=== PATIENT | female | born 1980 | race Caucasian/White ===

== ENCOUNTER 2022-08-27 14:13 | Outpatient (CLI) | payer MEDICARE, SELFPAY ==
--- NOTE | 2022-08-27 | XR_ITS ---
Final Report Patient: DESTINI ERIC Facility:?[facility] Patient ID:?[id number] Site Patient ID:?[id number]. Site :?[id number] Study:?XRay Chest PICC PLACEMENT-08/27/2022 3:49:27 PM Ordering Physician:Mireya Marie Final Report: Indication: PICC line placement Comparison: None available. Technique: Single AP view chest Findings: There is a right-sided PICC line with the tip in satisfactory position at the cavoatrial junction. There is no focal consolidation, effusion, or pneumothorax. The cardiac silhouette is mildly prominent. The bony thorax is grossly intact. Impression: Right-sided PICC line with the tip in satisfactory position at the cavoatrial junction. Dictated by Felton Bowles MD @ 08/27/2022 4:44:52 PM (Electronic Signature)
--- NOTE | 2022-08-27 14:30 | CRLHL7_ITS ---
For Patients: As a result of the Cures Act, medical imaging exams and procedure reports are released immediately into your electronic medical record. You may view this report before your referring provider. If you have questions, please contact your health care provider. Indication: chemotherapy administration Technique: Sonographic images of the right basilic vein submitted. IMPRESSION: Fluoroscopic guidance for right arm PICC line placement. Dictated by Paul Barry MD @ 08/27/2022 3:11:14 PM (Electronically Signed)
--- NOTE | 2022-08-27 15:30 | CRLHL7_ITS ---
For Patients: As a result of the Century Cures Act, medical imaging exams and procedure reports are released immediately into your electronic medical record. You may view this report before your referring provider. If you have questions, please contact your health care provider. INDICATION: Chemotherapy administration. PICC line placement. History of endocervical adenocarcinoma. TECHNIQUE: Chest 1 view. COMPARISON: None. FINDINGS: No focal consolidation, pleural effusion, or pneumothorax. Normal heart size and pulmonary vascularity. The tip of the right PICC is suboptimally visualized but likely within the right atrium approximately 1-2 cm below the cavoatrial junction. The bones are unremarkable. IMPRESSION: 1. No acute cardiopulmonary findings. 2. The tip of the right PICC is suboptimally visualized but likely within the right atrium. This could be retracted approximately 1-2 cm. Dictated by Melinda Burrell MD @ 08/27/2022 3:30:43 PM (Electronically Signed)
== END 2022-08-27 14:14 | disposition home or self-care (01) ==
LOC: US 14:13
PROVIDERS: Visit Provider Clinical Nurse Specialist
DX: C53.0 Malignant neoplasm of endocervix (principal)
CPT/HCPCS: 36573

== ENCOUNTER 2022-10-11 11:00 | Outpatient (RCR) | payer MEDICARE, SELFPAY ==
--- NOTE | 2022-07-21 14:50 | URNOTE ---
REceived request for prior auth for Ashley ([id number]). Per [employer] website. Prior authorization is not required.
--- NOTE | 2022-07-22 14:04 | URNOTE ---
Request received for authorization for Cisplatin (J9060), Emend ([id number]), Aloxi ([id number]). Prior authorization for Cisplatin J9060 is approved Authorization Ref# [id number] start 07-21-2022 to 07-21-2023, Emend ([id number]) and Aloxi ([id number]) PA is not required as MA members do not require PA. Call to [facility] Ref#[id number]. 07/22/2022 at 1347 AUTO BODY MAN.
--- NOTE | 2022-07-30 15:31 | ONC.PROVNOTE ---
[facility] Provider Note Clinic Note Narrative: Treatment plan: weekly cisplatin with radiation therapy Ms. Navarrete was seen by Dr. Nicky Blanco in [place] on 07/19/22 and desires to receive her treatment in [place]. She has cervical cancer and is to receive concurrent chemoradiation therapy with weekly cisplatin dosed at 40mg/M2. Orders were placed by pr on behalf of Dr. Nicky Blanco. Magnesium and potassium added to hydration fluids and Ms. Navarrete will have CBC BMP and Mg lab work prior to each dose. Per Dr. Blanco, Ms. Navarrete has her homegoing antiemetic prescriptions. Please see scanned office note by Dr. Blanco from 07/19/22 for more information.
--- NOTE | 2022-08-02 16:22 | URNOTE ---
PA for Cisplatin has been cancelled as medication is unable to be obtained. [facility] Rep. Anna Valdez Ref#[id number] Request received for Carboplatin [id number]. Prior Authorization from [facility] via [employer] Rep. Raj Scanlon approved Ref#[id number] from 08/02/22 to 08/02/23.
--- NOTE | 2022-08-03 12:50 | ONC.NURNOTE ---
Addendum entered by Laurel Haywood RN 08/10/22 11:19: teaching completed today patient has information from [facility] as well questions addressed consent and REBECCA reviewed and signed reviewed handouts on diarrhea management Original Note: New start chemotherapy teaching from 08/02/22 -teaching started but was not completed due to appt at XRT and late start with this appt -reviewed possible side effects of chemotherapy, after hours management, self care at home including importance of hydration, ER with fever, treatment schedule, appts made, started to review contents of the teaching binder -still needed, REBECCA and chemotherapy consents, PSDS, and review of chemo specific side effects -at the time of this teaching if was unknown how the treatment plan may be modified due to new info that there is a severe limitation of availability of cisplatin -possible other treatment options were discussed with Jennifer, with more info coming later today -labs were not done- due to time- this global technical writer thought that XRT was at 1500 but it was at 1400 Jennifer was aware she could stop by after XRT appt to get labs done
--- NOTE | 2022-08-03 12:58 | ONC.NURNOTE ---
MNT consulted reports a history of diarrhea and constipation with bloating high risk for increase in diarrhea due to location of XRT agreeable to MNT referral-
--- NOTE | 2022-08-04 16:14 | ONC.NURNOTE ---
Addendum entered by Laurel Haywood RN 08/05/22 08:58: follow up of yesterday's conversation did not go to ER due to pain resolution yesterday pm discussed with XRT staff yesterday and Dr Shipman and it was decided to monitor feels great today- no pain Original Note: reports racing heart from prednisone dose call into [facility] about next management, BP, P reported as normal SOB w/Exertion small stab of pain from anterior rib cage to posterior shoulder blade, was instructed to go to ER by [facility] with worsening pain reports a major anxiety attack yesterday during XRT Jennifer has made arrangements for more support next week some nausea today, unable to eat until mid afternoon taking antiemetics
--- NOTE | 2022-08-05 11:36 | URNOTE ---
Request received for Cisplatin (J9060) and Carboplatin (J9045).?Pt carries [facility] for insurance. Rep. Mary ([phone][facility] Cisplatin (J9060) and Carboplatin (J9045) from 08/05/22 to 08/06/23, [facility] aware this is due to medication availability,?Ref#[id number].
[2022-08-09 11:05] LABS: Basophils Absolute Auto 0.01 K/uL (0.00-0.30); Basophils Percent Auto 0.2 % (0.0-3.0); Eosinophils Absolute Auto 0.15 K/uL (0.00-0.50); Eosinophils Percent Auto 2.9 % (0.0-7.0); Hematocrit 39.2 % (33.0-51.0); Immature Granulocytes Abs Auto 0.04 K/uL (0.00-0.30); Immature Granulocytes Pct Auto 0.8 %; Lymphocytes Absolute Auto 1.33 K/uL (0.90-2.90); Lymphocytes Percent Auto 26.1 % (20-44); Mean Corpuscular HGB Conc 36 gm/dL (32-36); Mean Corpuscular Hemoglobin 32 pg (26-34); Mean Corpuscular Volume 89 fL (80-100); Monocytes Percent Auto 6.1 % (0.0-11.0); Neutrophils Absolute Auto 3.26 K/uL (1.7-7.0); Neutrophils Percent Auto 63.9 % (42.0-72.0); Platelet Count* 191 K/uL (140-440); Red Blood Count 4.42 m/uL (4.00-5.20)
[2022-08-09 11:14] LABS: Chloride* 105 mmol/L (96-114); Potassium* 4.5 mmol/L (3.6-5.1); Slide Review Reflex No; Sodium* 138 mmol/L (135-149)
[2022-08-09 11:16] LABS: Creatinine* 0.8 mg/dL (0.5-1.5); Est. Creatinine Clearance* 89.99; Estimated Glomerular Filt Rate 95 ml/min
[2022-08-09 11:17] LABS: Alanine Aminotransferase* 48 U/L (4-35); Alkaline Phosphatase* 71 U/L (40-150); Aspartate Amino Transferase* 33 U/L (12-35); Bilirubin Total* 1.6 mg/dL (0.1-1.5); Blood Urea Nitrogen* 21 mg/dL (5-24); Carbon Dioxide* 29 mmol/L (20-32); Glucose* 137 mg/dL (60-115); Magnesium* 1.7 mg/dL (1.5-2.6)
[2022-08-10 10:20] VITALS: BP 101/70; PULSE 86; RESP 16; TEMP 36.4; O2SAT 97
[2022-08-10] MEDS: MAGNESIUM SULFATE 2 GM, POTASSIUM CHLORIDE 10 MEQ in 0.9 % SODIUM CHLORIDE 1000 ml 1,00... IV (10:55)
[2022-08-10] MEDS: PALONOSETRON 0.25 MG/5 ML inj IV (12:06)
[2022-08-10] MEDS: FAMOTIDINE 10 MG/ML inj 20 MG IVP (12:07)
[2022-08-10] MEDS: dexAMETHasone 10 MG in 0.9 % SODIUM CHLORIDE 100 ml 100 ML 404 MG IVPB (12:07)
[2022-08-10] MEDS: FOSAPREPITANT 150 MG inj 150 MG in 0.9 % SODIUM CHLORIDE 250 ml 250 ML 510 MG IVPB (12:35)
[2022-08-16 10:37] LABS: Eosinophils Absolute Auto 0.08 K/uL (0.00-0.50); Hematocrit 38.4 % (33.0-51.0); Hemoglobin* 13.5 gm/dL (12.0-16.0); Immature Granulocytes Abs Auto 0.12 K/uL (0.00-0.30); Immature Granulocytes Pct Auto 1.5 %; Lymphocytes Percent Auto 11.2 % (20-44); Mean Corpuscular HGB Conc 35 gm/dL (32-36); Mean Corpuscular Hemoglobin 32 pg (26-34); Mean Corpuscular Volume 90 fL (80-100); Monocytes Percent Auto 4.4 % (0.0-11.0); Neutrophils Percent Auto 81.9 % (42.0-72.0); Platelet Count* 139 K/uL (140-440); RDW Coefficient of Variation % 12.4 % (11.5-15.5); Red Blood Count 4.28 m/uL (4.00-5.20); White Blood Count* 7.76 K/uL (4.50-11.00)
[2022-08-16 10:38] LABS: Slide Review Reflex No
[2022-08-16 10:43] LABS: Chloride* 106 mmol/L (96-114); Sodium* 138 mmol/L (135-149)
[2022-08-16 10:45] LABS: Aspartate Amino Transferase* 39 U/L (12-35); Bilirubin Total* 1.3 mg/dL (0.1-1.5); Carbon Dioxide* 28 mmol/L (20-32); Creatinine* 0.9 mg/dL (0.5-1.5); Est. Creatinine Clearance* 79.99; Estimated Glomerular Filt Rate 82 ml/min
[2022-08-16 10:46] LABS: Alanine Aminotransferase* 55 U/L (4-35); Alkaline Phosphatase* 65 U/L (40-150); Blood Urea Nitrogen* 23 mg/dL (5-24); Calcium* 8.7 mg/dL (8.4-10.6); Glucose* 133 mg/dL (60-115); Total Protein* 6.7 g/dL (6.0-8.3)
[2022-08-16 10:47] LABS: Magnesium* 1.7 mg/dL (1.5-2.6)
[2022-08-17] MEDS: FAMOTIDINE 10 MG/ML inj 20 MG IVP (12:37)
[2022-08-17] MEDS: dexAMETHasone 10 MG in 0.9 % SODIUM CHLORIDE 100 ml 100 ML 404 MG IVPB (12:37)
[2022-08-17] MEDS: FOSAPREPITANT 150 MG inj 150 MG in 0.9 % SODIUM CHLORIDE 250 ml 250 ML 510 MG IVPB (13:05)
[2022-08-23 11:28] LABS: Basophils Absolute Auto 0.01 K/uL (0.00-0.30); Basophils Percent Auto 0.2 % (0.0-3.0); Eosinophils Absolute Auto 0.05 K/uL (0.00-0.50); Eosinophils Percent Auto 0.8 % (0.0-7.0); Hematocrit 37.3 % (33.0-51.0); Immature Granulocytes Abs Auto 0.05 K/uL (0.00-0.30); Immature Granulocytes Pct Auto 0.8 %; Lymphocytes Percent Auto 9.6 % (20-44); Mean Corpuscular HGB Conc 35 gm/dL (32-36); Mean Corpuscular Hemoglobin 32 pg (26-34); Mean Corpuscular Volume 91 fL (80-100); Monocytes Percent Auto 5.9 % (0.0-11.0); Neutrophils Percent Auto 82.7 % (42.0-72.0); RDW Coefficient of Variation % 12.9 % (11.5-15.5); Red Blood Count 4.08 m/uL (4.00-5.20); White Blood Count* 6.64 K/uL (4.50-11.00)
--- NOTE | 2022-08-23 12:01 | PC.NURSE ---
Patient called wondering if she is dehydrated. Stated that she has had diarrhea for a few days, extreme lower back pain, blood in urine, nausea from the pain in her back. Denies fever. Patient was not seen in the infusion center today. She came for labs only for chemo tomorrow, but stated that the public works laborer had troubles getting blood and when she was driving home, she thought maybe she is dehydrated and should see if she should go in to be checked. Called over to [facility]. They were going to contact the care team over there and reach out to patient to see what further interventions are needed. Called patient back to let her know that she should be hearing from [facility]. Told patient we are happy to help but since we did not assess patient today, we would need to see her before ordering further interventions.
--- NOTE | 2022-08-23 12:23 | PC.NURSE ---
Lab called stating that patients blood was hemolyzed and that they could not do a platelet count. Patient lives in [place] and is not in the building anymore. Patient will be here tomorrow for treatment. Note left on chart to redraw platelets tomorrow when she arrives.
[2022-08-23 14:12] LABS: Chloride* 108 mmol/L (96-114)
[2022-08-23 14:13] LABS: Sodium* 139 mmol/L (135-149)
[2022-08-23 14:14] LABS: Potassium* 4.9 mmol/L (3.6-5.1)
[2022-08-23 14:16] LABS: Alanine Aminotransferase* 53 U/L (4-35); Alkaline Phosphatase* 76 U/L (40-150); Aspartate Amino Transferase* 32 U/L (12-35); Blood Urea Nitrogen* 33 mg/dL (5-24); Carbon Dioxide* 23 mmol/L (20-32); Estimated Glomerular Filt Rate 73 ml/min; Glucose* 113 mg/dL (60-115); Total Protein* 6.9 g/dL (6.0-8.3)
[2022-08-23 14:17] LABS: Calcium* 8.4 mg/dL (8.4-10.6)
[2022-08-23 20:23] LABS: Slide Review Reflex No
[2022-08-24 10:29] LABS: Basophils Absolute Auto 0.01 K/uL (0.00-0.30); Basophils Percent Auto 0.2 % (0.0-3.0); Eosinophils Absolute Auto 0.05 K/uL (0.00-0.50); Eosinophils Percent Auto 0.9 % (0.0-7.0); Hematocrit 34.6 % (33.0-51.0); Hemoglobin* 12.1 gm/dL (12.0-16.0); Immature Granulocytes Abs Auto 0.04 K/uL (0.00-0.30); Immature Granulocytes Pct Auto 0.7 %; Lymphocytes Percent Auto 8.1 % (20-44); Mean Corpuscular HGB Conc 35 gm/dL (32-36); Mean Corpuscular Hemoglobin 32 pg (26-34); Mean Corpuscular Volume 91 fL (80-100); Monocytes Percent Auto 5.2 % (0.0-11.0); Neutrophils Percent Auto 84.9 % (42.0-72.0); Platelet Count* 97 K/uL (140-440); RDW Coefficient of Variation % 12.8 % (11.5-15.5); Red Blood Count 3.81 m/uL (4.00-5.20); White Blood Count* 5.42 K/uL (4.50-11.00)
[2022-08-24 10:33] LABS: Slide Review Reflex No
[2022-08-24 10:41] VITALS: BP 108/72; RESP 16; TEMP 36.2; O2SAT 94
[2022-08-24 11:14] LABS: Appearance Urine Slightly Cloudy (Clear); Bilirubin Urine Negative (Negative); Color Urine Dark yellow (Yellow); Glucose Urine Negative (Negative); Ketones Urine Negative (Negative)
[2022-08-24 11:15] LABS: Blood Urine 3+ (Negative); Leukocyte Esterase Urine Trace (Negative); Nitrite Urine Negative (Negative); Protein Urine 1+ (Negative); Specific Gravity Urine > 1.030 (1.000-1.030); Urobilinogen Urine 0.2 (0.2-1.0); pH Urine 5.5 (5.0-8.5)
--- NOTE | 2022-08-24 11:18 | PC.SOCIAL ---
Met with pt in pt's room. Pt was laying down as she stated she was not feeling well and waiting to see if she was going to get her chemo treatment. Pt had her daughter bedside. Introduced self and discussed what social work can do to assist. Pt states that she is not in need of any resources at this time. Discussed pt's support network at home and pt is feeling good about who she has to support her. Offered a social work business card and asked that pt call social work if she has any needs that come up or if she would like social work to come and meet with her again. Pt agreed and thanked this worker. Social work will follow up as necessary.
[2022-08-24] MEDS: 0.9 % SODIUM CHLORIDE 1000 ml 1,000 ML IV (11:40)
[2022-08-25 11:51] VITALS: BP 99/68; PULSE 106; RESP 16; TEMP 36.3; O2SAT 97
[2022-08-25] MEDS: MAGNESIUM SULFATE 2 GM, POTASSIUM CHLORIDE 10 MEQ in 0.9 % SODIUM CHLORIDE 1000 ml 1,00... IV (12:48)
[2022-08-25] MEDS: PALONOSETRON 0.25 MG/5 ML inj IV (13:50)
[2022-08-25] MEDS: dexAMETHasone 10 MG in 0.9 % SODIUM CHLORIDE 100 ml 100 ML 404 MG IVPB (13:53)
[2022-08-25] MEDS: FAMOTIDINE 10 MG/ML inj 20 MG IVP (14:09)
[2022-08-25] MEDS: FOSAPREPITANT 150 MG inj 150 MG in 0.9 % SODIUM CHLORIDE 250 ml 250 ML 510 MG IVPB (14:15)
[2022-08-26 09:00] VITALS: BP 154/104; PULSE 107; RESP 16; TEMP 36.6; O2SAT 98
[2022-08-26] MEDS: 0.9 % SODIUM CHLORIDE 1000 ml 1,000 ML IV (09:09)
--- NOTE | 2022-08-26 09:41 | ONC.NURNOTE ---
Patient was 40min late to appointment today as patient ran out of gas on the way to her appointment. Did not have any money in her bank account so needed to borrow money from a friend. Patient expresses financial difficulty. Gas card and [employer] gift card was given to patient. Patient advocate notified. child and family services worker notified and they will come meet with patient.
--- NOTE | 2022-08-26 10:12 | PC.NURSE ---
Patient tolerated fluids well. Had an episode of incontinence at the end. student financial services counselor met with patient today and will also meet with her tomorrow.
[2022-08-26 11:46] LABS: RBC Urine 25-50 (0-2)
[2022-08-26 11:47] LABS: Bacteria Urine Few; Squamous Epithelial Cell Urine Few (None-Few)
--- NOTE | 2022-08-26 16:14 | PC.SOCIAL ---
Met pt in room at [facility]. Discussed current stressors and offered support. Pt was filling out application for [employer] that her nurse provided her. Discussed the [employer] with pt in detail. Pt is struggling financially as she is single and has three children in her home and a grandchild. Pt's children are 20 years old, 19 years old, and 13 years old. Discussed supportive groups and activities that can be done with pt and her family through the [employer] and pt was interested. Pt is unable to work at this time since she is receiving cancer treatment. Pt is current with her rent and electric bills. Pt states she believes she owes a car payment, cell phone bill, gas bill (bill is not in her name, but pt may call today and see if it can be changed to her name). Pt has no source of income. Discussed the types of bills that the beni through [employer] may cover. Informed pt that she could follow up with [employer] to ensure they receive her application this afternoon if she has time. Discussed pt going to [facility] and applying for assistance with food [employer] and helm assistance. Pt states she did complete the application for [employer], but has not received a response yet. Pt states she is currently on [employer] insurance. Discussed the possibility of pt talking to her [facility] health care worker to see if she would qualify for Medical Assistance, since she is not working. Discussed that this worker will locate the community action agency in [facility] and any other resources and provide them to pt when she comes to [facility] tomorrow. Pt is open to receiving information on therapy services and support groups in her area. Social Work will follow up as necessary.
[2022-08-27] MEDS: 0.9 % SODIUM CHLORIDE 1000 ml 1,000 ML IV (09:06)
--- NOTE | 2022-08-27 16:39 | PC.SOCIAL ---
Met with pt in pt's room in [facility]. follow up visit from yesterday's visit to provide resources for services in pt's county. Provided information to [facility] Chief Steward/Stewardess so pt can discuss with her financial worker to see if she is eligible to switch from [place] [employer] to Medical Assistance, apply for helm assistance, and follow up on her food share application. Provided contact information for [employer] ([employer] May have volunteers in certain areas who might be able to provide transportation. Provided information for [facility] [employer] May help with referrals to other transportation resources. http://www.cancer.org/Resources/90942.pdf Provided contact information for [employer] [facility] May assist financially toward transportation expenses. Provided the contact information and hours for [facility] can assist with energy assistance, foodshelf, and housing. Provided contact information and hours for [facility] are a place for connection to information, resources, services, and support. Informed that [facility] [place] can assist with locating resources and assist with completing applications for resources. Provided information on support groups for cancer at [facility]. Pt was in good spirits and accepted the resources. Pt was informed she can reach out to social work department if she should have any other questions. Pt states that she is almost complete with her treatment portion that was to be completed at [facility]. Social Work will follow up as necessary.
--- NOTE | 2022-08-27 16:47 | PC.NURSE ---
Trell, electrical instrument technician, gave this RN verbal results that 2nd CXR shows PICC line in satisfactory position. Let pt go and will review report on Tuesday.
[2022-08-30] MEDS: 0.9 % SODIUM CHLORIDE 1000 ml 1,000 ML IV (08:25)
[2022-08-30 08:54] VITALS: BP 117/76; PULSE 98; RESP 16; TEMP 35.9; O2SAT 97
[2022-08-31] MEDS: 0.9 % SODIUM CHLORIDE 1000 ml 1,000 ML IV (13:13)
[2022-09-01 08:21] VITALS: BP 132/94; PULSE 95; RESP 16; TEMP 36; O2SAT 94
[2022-09-01 08:50] LABS: Eosinophils Percent Auto 1.5 % (0.0-7.0); Hematocrit 28.7 % (33.0-51.0); Hemoglobin* 10.2 gm/dL (12.0-16.0); Immature Granulocytes Pct Auto 4.5 %; Lymphocytes Percent Auto 10.1 % (20-44); Mean Corpuscular HGB Conc 36 gm/dL (32-36); Mean Corpuscular Hemoglobin 32 pg (26-34); Mean Corpuscular Volume 90 fL (80-100); Monocytes Percent Auto 7.5 % (0.0-11.0); Neutrophils Percent Auto 76.4 % (42.0-72.0); Platelet Count* 57 K/uL (140-440); RDW Coefficient of Variation % 12.9 % (11.5-15.5); Red Blood Count 3.18 m/uL (4.00-5.20); White Blood Count* 2.67 K/uL (4.50-11.00)
[2022-09-01 08:57] LABS: Albumin* 3.7 g/dL (3.3-5.0); Chloride* 105 mmol/L (96-114); Potassium* 4.1 mmol/L (3.6-5.1); Sodium* 137 mmol/L (135-149)
[2022-09-01 08:59] LABS: Creatinine* 0.8 mg/dL (0.5-1.5); Est. Creatinine Clearance* 89.99; Estimated Glomerular Filt Rate 95 ml/min
[2022-09-01 09:00] LABS: Alanine Aminotransferase* 43 U/L (4-35); Alkaline Phosphatase* 69 U/L (40-150); Aspartate Amino Transferase* 27 U/L (12-35); Bilirubin Total* 1.2 mg/dL (0.1-1.5); Blood Urea Nitrogen* 25 mg/dL (5-24); Calcium* 8.6 mg/dL (8.4-10.6); Carbon Dioxide* 26 mmol/L (20-32); Glucose* 148 mg/dL (60-115); Slide Review Reflex Yes; Total Protein* 6.1 g/dL (6.0-8.3)
[2022-09-01 09:01] LABS: Magnesium* 1.5 mg/dL (1.5-2.6)
[2022-09-01 09:45] LABS: Slide Review Acceptable Review (Acceptable)
--- NOTE | 2022-09-01 10:11 | ONC.NURNOTE ---
Patient arrived feeling great for chemo with her dad but platelets came back low at 57,000. Dr. eastman notified due to patient wanting to have chemo even on or Tuesday. Dr. eastman spoke with Dr. Parmar with [facility] and cycle 5 will be cancelled all together with a recheck of platelets Tuesday. Labs Tuesday to be sent to [place] so that Dr. Parmar is aware and they may do platelets there before her brachytherapy.
[2022-09-02] MEDS: 0.9 % SODIUM CHLORIDE 1000 ml 1,000 ML IV (09:12)
[2022-09-02 09:16] VITALS: BP 118/85; PULSE 105; RESP 16; TEMP 36.4; O2SAT 94
[2022-09-03 09:18] VITALS: BP 114/73; PULSE 92; RESP 16; TEMP 36.1; O2SAT 94
[2022-09-03 09:50] LABS: Platelet Count* 67 K/uL (140-440)
--- NOTE | 2022-09-09 15:09 | ONC.NURNOTE ---
Picc line dressing change. line measures 15cm from previous 4cm. flushes well. good blood return. per Cynthia Talley APRN d/c Picc line. D/c and lorna well.
[2022-09-09 15:43] VITALS: TEMP 36.1
[2022-10-11 11:44] LABS: Basophils Percent Auto 0.3 % (0.0-3.0); Eosinophils Percent Auto 5.9 % (0.0-7.0); Hematocrit 31.1 % (33.0-51.0); Hemoglobin* 10.5 gm/dL (12.0-16.0); Immature Granulocytes Pct Auto 0.6 %; Lymphocytes Percent Auto 13.2 % (20-44); Mean Corpuscular HGB Conc 34 gm/dL (32-36); Mean Corpuscular Hemoglobin 32 pg (26-34); Mean Corpuscular Volume 96 fL (80-100); Monocytes Percent Auto 6.2 % (0.0-11.0); Neutrophils Percent Auto 73.8 % (42.0-72.0); Platelet Count* 165 K/uL (140-440); Red Blood Count 3.24 m/uL (4.00-5.20)
[2022-10-11 12:02] LABS: Slide Review Reflex No
== END 2023-01-29 23:59 | disposition home or self-care (01) ==
LOC: CCIC 11:00
PROVIDERS: Internal Medicine Medical Oncology; Radiology Radiation Oncology; Visit Provider Clinical Nurse Specialist
DX: C53.0 Malignant neoplasm of endocervix (principal)
CPT/HCPCS: 36415; 36569; 36573; 36589; 36591; 36592; 80053; 81003; 81015; 83735; 85025; 85049; 87086; 96360; 96361; 96366; 96376; 96413; 99202; 99205; 99211; 99212; 99214; 99215; A4221; J1100; J1453; J2469; J3475; J3480; J7030; J7050; J7120; J9060; S0028